=== PATIENT | male | born 1950 | race Caucasian/White ===

== ENCOUNTER 2020-10-27 12:34 | Emergency (ER) | payer OTHER ==
[~2020-10-27] VITALS: Ht 165.1 cm; Wt 75.7 kg
[2020-10-27] MEDS ORDERED: COZAAR100 MG PO (12:48)
[2020-10-27] MEDS ORDERED: GLUMETZA1000 MG PO (12:48)
[2020-10-27] MEDS ORDERED: MOTION SICKNESS25 M5 PO (16:15)
== END 2020-10-27 16:30 | disposition home or self-care (01) ==
LOC: ER 12:34
DX: R42 Dizziness and giddiness (principal)

== ENCOUNTER 2020-11-05 14:08 | Outpatient (CLI) | payer OTHER ==
[~2020-11-05 14:08] MED LIST: COZAAR100 MG PO; GLUMETZA1000 MG PO; MOTION SICKNESS25 M5 PO
== END 2020-11-05 14:17 | disposition home or self-care (01) ==
LOC: SONOGRAMA 14:08 → MAMO-SONO 14:15 → SONOGRAMA 14:17
PROVIDERS: ATTEND Internal Medicine
DX: N18.32 Chronic kidney disease, stage 3b (principal); N28.89 Other specified disorders of kidney and ureter

== ENCOUNTER 2021-07-19 09:38 | Outpatient (CLI) | payer OTHER | END 2021-07-19 09:40 | disposition home or self-care (01) | LOC: RAD 09:38 | PROVIDERS: ATTEND Surgery | DX: N20.0 Calculus of kidney (principal) ==

== ENCOUNTER 2021-07-22 10:40 | Outpatient (CLI) | payer OTHER | END 2021-07-22 10:46 | disposition home or self-care (01) | LOC: RAD 10:40 → EKG 10:40 | PROVIDERS: ATTEND Surgery | DX: Z01.810 Encounter for preprocedural cardiovascular examination (principal); N20.0 Calculus of kidney ==

== ENCOUNTER 2021-08-22 08:59 | Outpatient (CLI) | payer OTHER | END 2021-08-22 09:00 | disposition home or self-care (01) | LOC: RAD 08:59 | PROVIDERS: ATTEND Surgery | DX: N20.0 Calculus of kidney (principal) ==

== ENCOUNTER 2021-11-29 08:51 | Outpatient (CLI) | payer OTHER | END 2021-11-29 08:57 | disposition home or self-care (01) | LOC: RAD 08:51 | PROVIDERS: ATTEND Surgery | DX: N20.0 Calculus of kidney (principal) ==

== ENCOUNTER 2022-10-20 07:36 | Outpatient (CLI) | payer OTHER | END 2022-10-20 10:38 | disposition home or self-care (01) | LOC: LAB 07:36 → EKG 07:36 | PROVIDERS: ATTEND Ophthalmology | DX: I10 Essential (primary) hypertension (principal); Z98.41 Cataract extraction status, right eye; H25.011 Cortical age-related cataract, right eye; I11.9 Hypertensive heart disease without heart failure ==